=== PATIENT | female | born 2005 | race Caucasian/White ===

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

== ENCOUNTER 2025-04-15 11:50 | Outpatient (CLI) | payer OTHER, SELFPAY | END 2025-04-15 11:51 | disposition home or self-care (01) | LOC: NFLDREF 04-18 10:14 | PROVIDERS: Visit Provider Obstetrics & Gynecology | DX: Z79.899 Other long term (current) drug therapy (principal) | CPT/HCPCS: 84403 ==